=== PATIENT | male | born 1990 | race Caucasian/White ===

== ENCOUNTER 2019-06-15 07:33 | Outpatient (CLI) | payer BC, OTHER ==
[2019-06-15] MEDS ORDERED: PROT480P PO (08:24)
[2019-06-15] MEDS ORDERED: CALC1CAP8 PO (08:24)
[2019-06-15] MEDS ORDERED: MULT-516 PO (08:24)
[2019-06-15] MEDS ORDERED: IBUP200C8 PO (08:24)
== END 2019-06-15 23:59 | disposition home or self-care (01) ==
LOC: STAR 07:33
PROVIDERS: ATTEND Orthopaedic Surgery
DX: Z02.9 Encounter for administrative examinations, unspecified (principal)

== ENCOUNTER 2019-06-23 14:01 | Day surgery (SDC) | payer BC, OTHER ==
[~2019-06-23] VITALS: Ht 167.6 cm; Wt 71.5 kg
[~2019-06-23 14:01] MED LIST: CALC1CAP8 PO; IBUP200C8 PO; MULT-516 PO; PROT480P PO
[2019-06-23] MEDS ORDERED: EPINEPHRINE 1 MG/ML, 1ML ONE (15:01)
[2019-06-23] MEDS ORDERED: BUPIVACAINE/PF 0.25% ONE (15:01)
[2019-06-23] MEDS ORDERED: MIDAZOLAM 1 MG/ML, 2ML ONE (15:02)
[2019-06-23] MEDS ORDERED: FENTANYL PF 250 MCG/5ML ONE (15:16)
[2019-06-23] MEDS ORDERED: PROPOFOL 10 MG/ML, 20ML ONE (15:18)
[2019-06-23] MEDS ORDERED: DEXAMETHASONE 4 MG/ML, 1ML ONE ×2 (15:18)
[2019-06-23] MEDS ORDERED: ROCURONIUM 10MG/ML,5ML ONE (15:18)
[2019-06-23] MEDS ORDERED: SUCCINYLCHOLINE 20 MG/ML, 10ML ONE (15:18)
[2019-06-23] MEDS ORDERED: CEFAZOLIN 1,000 MG ONE ×2 (15:18)
[2019-06-23] MEDS ORDERED: LACTATED RINGERS 1,000 ML IV SCH ×2 (15:35→18:30)
[2019-06-23] MEDS ORDERED: KETOROLAC 30 MG/1 ML ONE (15:38)
[2019-06-23] MEDS ORDERED: LIDOCAINE-MPF 1%, 2ML INFIL ONE (16:00)
[2019-06-23] MEDS ORDERED: ONDANSETRON 2MG/ML, 2ML ONE ×2 (16:09)
[2019-06-23] MEDS ORDERED: MEPERIDINE/PF 25MG/ML,1ML ONE (17:16)
[2019-06-23] MEDS ORDERED: ALBUTEROL SULFATE 2.5 MG/3 ML NPPB PRN (17:30)
[2019-06-23] MEDS ORDERED: DIAZEPAM 5 MG/ML, 2ML IVPush PRN (17:30)
[2019-06-23] MEDS ORDERED: PROMETHAZINE 25 MG/ML, 1ML IV PRN (17:30)
[2019-06-23] MEDS ORDERED: HALOPERIDOL 5 MG/ML IV PRN (17:30)
[2019-06-23] MEDS ORDERED: PROMETHAZINE 12.5 MG SUPP PR PRN (17:30)
[2019-06-23] MEDS ORDERED: FENTANYL PF 100 MCG/2ML IV PRN (17:30)
[2019-06-23] MEDS ORDERED: MIDAZOLAM 1 MG/ML, 2ML IV PRN (17:30)
[2019-06-23] MEDS ORDERED: ONDANSETRON ODT 8 MG PO PRN (17:30)
[2019-06-23] MEDS ORDERED: ONDANSETRON 2MG/ML, 2ML IV PRN ×2 (17:30→18:30)
[2019-06-23] MEDS ORDERED: LABETALOL 5MG/ML, 20ML IV PRN (17:30)
[2019-06-23] MEDS ORDERED: MEPERIDINE/PF 25MG/ML,1ML IVPush PRN (17:30)
[2019-06-23] MEDS ORDERED: HYDROmorphone 2 MG/ML, 1ML IVPush PRN (17:30)
[2019-06-23] MEDS ORDERED: hydrALAzine 20 MG/ML, 1ML IV PRN (17:30)
[2019-06-23] MEDS ORDERED: EPHEDRINE 50 MG/ML, 1ML IVPush PRN (17:30)
[2019-06-23] MEDS ORDERED: OXYcodone 5 MG/5 ML ORAL.SOL UDC PO PRN (17:30)
[2019-06-23] MEDS ORDERED: ACETAMINOPHEN 325 MG TABLET PO PRN ×2 (17:30→18:30)
[2019-06-23] MEDS ORDERED: HYDROcodone/APAP 5/325 TABLET PO PRN (18:30)
[2019-06-23] MEDS ORDERED: KETOROLAC 30 MG/1 ML IV SCH (18:30)
[2019-06-23] MEDS ORDERED: PROMETHAZINE 25 MG/ML, 1ML IM PRN (18:30)
[2019-06-23] MEDS ORDERED: MORPHINE SULFATE 4 MG/ML, 1ML IV PRN (18:30)
== END 2019-06-23 19:20 | disposition home or self-care (01) ==
LOC: OR 14:01 → 4NE 17:52 → OR 19:20
PROVIDERS: ATTEND Orthopaedic Surgery
DX: S43.431A Superior glenoid labrum lesion of right shoulder, initial encounter (principal); M89.511 Osteolysis, right shoulder; M75.41 Impingement syndrome of right shoulder; M75.51 Bursitis of right shoulder; Z87.891 Personal history of nicotine dependence; Z72.89 Other problems related to lifestyle; X58.XXXA Exposure to other specified factors, initial encounter; Y93.89 Activity, other specified; Y92.89 Other specified places as the place of occurrence of the external cause; Y99.8 Other external cause status
CPT/HCPCS: 29822; 29824; 29826; 64415; J0171; J0330; J0690; J1100; J1885; J2175; J2250; J2405; J2704; J3010; J3490; J7120; G0378